=== PATIENT | male | born 1975 | race Caucasian/White ===

== ENCOUNTER 2020-02-22 16:41 | Inpatient (IN) | payer MEDICAID, SELFPAY ==
[~2020-02-22] VITALS: Ht 167.6 cm; Wt 98.4 kg
[~2020-02-22 16:41] MED LIST: BUPIVACAINE /EPINEPHRINE/PF 0.5% 30 ML VIAL INJ ONE; D5/0.45 NS 1,000 ML IV.SOLN IV ONE; MIDAZOLAM HCL 5 MG/5 ML VIAL IVP ONE; NS IRRIG SOLN 1000 ML IR ONE; PIPERACILLIN/TAZOBACTAM 3.375 GM/DEX-IS 50 ML PIGGYBACK IV ONE; PROPOFOL 200MG/ 20ML VIAL (DIPRIVAN) IV ONE; ROCURONIUM BROMIDE 10 MG/ML (ZEMURON) IV ONE; SEVOFLURANE 15 MIN GAS INH ONE; fentaNYL CITRATE 250 MCG/5 ML AMP IV ONE
[2020-02-22 16:57] VITALS: BP_SYST 131
--- NOTE | 2020-02-22 17:01 | NUR ---
chay and placed in the waiting room.
--- NOTE | 2020-02-22 17:50 | NUR ---
Patient to ER bed 04 to gown for evaluation. Side rails up.
--- NOTE | 2020-02-22 17:52 | NUR ---
Patient arrived in the ED c/o bilateral upper quadrant abdominal pain and constipation that started 2 days ago. Denied any chest pain or shortness of breath. Denied any fevers, chills, nausea or vomiting. Patient is alert and oriented x4, respirations even and unlabored, speaking in full sentences, and ambulating with a steady gait. VSS, pain level 7/10. Informed of the approximate wait time. Instructed to notify ED staff for any changes in condition or worsening of symptoms while waiting to be seen by an ED provider. Patient verbalized understanding.
--- NOTE | 2020-02-22 18:28 | NUR ---
ER Dr. Dominguez at bedside examining patient.
[2020-02-22] MEDS ORDERED: MORPHINE 4 MG/ML INJ. SYRINGE IVP ONE (18:30)
[2020-02-22] MEDS ORDERED: DIPHENHYDRAMINE INJ 50 MG/ML VIAL IVP ONE (18:30)
--- NOTE | 2020-02-22 18:40 | NUR ---
# 22 gauge angiocath placed to LAC. Use of asceptic technique. Opsite placed over site. Blood return noted. Blood for lab drawn from site. Flushed with 10 cc of normal saline. No evidence of infiltration noted. Patient tolerated well.
[2020-02-22 19:09] LABS: BASOPHILS # (AUTO) 0.1 K/uL (0.0-0.2); BASOPHILS % (AUTO) 0.6 % (0.0-2.0); EOSINOPHILS # (AUTO) 0.1 K/uL (0.0-0.4); EOSINOPHILS % (AUTO) 0.7 % (0.0-4.0); HEMATOCRIT 40.9 % (36-54); HEMOGLOBIN 13.5 g/dL (14.0-18.0); LYMPHOCYTES # (AUTO) 2.6 K/uL (1.0-5.5); LYMPHOCYTES % (AUTO) 20.5 % (20.5-51.5); MEAN CORPUSCULAR HEMOGLOBIN 28 pg (27-31); MEAN CORPUSCULAR HGB CONC 33 % (32-36); MEAN CORPUSCULAR VOLUME 86 fL (79.0-98.0); MONOCYTES # (AUTO) 0.9 K/uL (0.0-1.0); MONOCYTES % (AUTO) 7.3 % (1.7-9.3); NEUTROPHILS # (AUTO) 8.9 K/uL (1.8-7.7); NEUTROPHILS % (AUTO) 70.9 % (40.0-70.0); PLATELET COUNT (AUTO) 273 K/uL (130-430); RED BLOOD CELL COUNT(AUTO) 4.77 MIL/uL (4.2-6.2); RED CELL DISTRIBUTION WIDTH 13.4 % (9.0-15.0); WHITE BLOOD COUNT (AUTO) 12.5 K/uL (4.8-10.8)
--- NOTE | 2020-02-22 19:11 | NUR ---
Report given to MIGUELINA Nieves.
[2020-02-22 19:19] LABS: BILIRUBIN,URINE NEGATIVE (NEGATIVE); BLOOD, URINE NEGATIVE (NEGATIVE); CLARITY/URINE CLEAR (CLEAR); COLOR,URINE YELLOW (YELLOW); GLUCOSE,URINE NEGATIVE (NEGATIVE); KETONES,URINE TRACE (NEGATIVE); LEUKOCYTE ESTERASE ,URINE NEGATIVE (NEGATIVE); NITRITE, URINE NEGATIVE (NEGATIVE); PH,URINE 6.5 (5.0-8.0); PROTEIN URINE NEGATIVE (NEGATIVE); UROBILINOGEN,URINE 0.2 (0.2-1.0)
[2020-02-22 19:38] LABS: CALCIUM 8.6 mg/dL (8.4-11.0); CREATININE 0.75 mg/dL (0.55-1.30)
[2020-02-22 19:40] LABS: PROTHROMBIN TIME 10.3 SECS (9.5-12.5)
[2020-02-22 19:44] LABS: ALBUMIN 3.6 g/dL (3.4-4.8); TOTAL BILIRUBIN 0.6 mg/dL (0.0-1.0)
--- NOTE | 2020-02-22 20:18 | NUR ---
ER Dr. Price at bedside examining patient.
[2020-02-22] MEDS ORDERED: PIPERACILLIN/TAZO 3.375 GM in NS 50 ML IV ONE (20:30)
[2020-02-22] MEDS ORDERED: metroNIDAZOLE 500 mg/NS 100 ML IV ONE (20:30)
[2020-02-22] MEDS ORDERED: NACL 0.9% 2,000 ML IV ONE (20:30)
--- NOTE | 2020-02-22 20:31 | NUR ---
Jordyn clancy in ED - 02/22/20 at 2218 by [email or web address] BON Doll at bedside examining patient.
[2020-02-22] MEDS ORDERED: PIPERACILLIN/TAZOBACTAM 3.375 GM/VIAL (ZOSYN) IV ONE (21:01)
[2020-02-22] MEDS ORDERED: ONDANSETRON HCL 4 MG/2 ML VIAL IVP PRN (21:15)
[2020-02-22] MEDS ORDERED: MORPHINE 2 MG/ML INJ. SYRINGE IVP PRN (21:15)
[2020-02-22] MEDS ORDERED: D5/0.45 NS 1,000 ML IV ONE (21:15)
--- NOTE | 2020-02-22 21:20 | NUR ---
Swabbed Covid-19 and MRSA and sent to lab.
[2020-02-22] MEDS ORDERED: ATOR40TA68 PO (21:38)
[2020-02-22] MEDS ORDERED: ASPI-1155 PO (21:38)
[2020-02-22 22:04] LABS: PROTHROMBIN TIME 10.2 SECS (9.5-12.5)
--- NOTE | 2020-02-22 22:06 | NUR ---
Patient resting quietly. No acute distress noted. Vital signs within normal range.
--- NOTE | 2020-02-22 22:15 | NUR ---
Patient will be admitted to care of and Dr. Moody. Admitted to M/S unit. Will go to room 108A. Belongings list completed. Complete and up to date summary report printed. SBAR report to be given at bedside with opportunity for questions.
--- NOTE | 2020-02-22 22:27 | NUR ---
ADMIT NOTE Received pt from ER to the floor with a diagnosis of sepsis, acute appendicitis, leukocytosis. Admission process initiated. patient oriented to pain management, safety and call light-teach back done.
[2020-02-22 22:33] VITALS: BP_SYST 117
[2020-02-22] MEDS ORDERED: FLU VACC QS2020-21 (6 mos & up) 0.5 ML/SYRINGE I.M. PRN (23:00)
--- NOTE | 2020-02-23 | NUR ---
OPENING NOTE SBAR REPORT RECEIVED FROM JOJO MCINTYRE. CARE ASSUMED. PT LAYING IN BED ASLEEP. NO SIGNS AND SYMPTOMS OF DISTRESS NOTED. PT HAS RIGHT AC 20G RUNNING D5 1/2 NS @ 50 ML/HR. BED LOCKED IN LOWEST POSITION. CALL LIGHT WITHIN REACH. SAFETY PRECAUTIONS IN PLACE. WILL CONTINUE TO MONITOR.
[2020-02-23] MEDS ORDERED: PIPERACILLIN/TAZOBACTAM 3.375 GM/VIAL (ZOSYN) IV ONE ×2 (00:55→22:01)
[2020-02-23] MEDS ORDERED: metroNIDAZOLE 500 mg/NS 100 ML IV ONE (00:56)
--- NOTE | 2020-02-23 02:05 | NUR ---
PT SLEEPING. IV INFUSING. NO SIGNS AND SYMPTOMS OF DISTRESS NOTED. BED LOCKED IN LOWEST POSITION. CALL LIGHT WITHIN REACH. SAFETY PRECAUTIONS IN PLACE. WILL CONTINUE TO MONITOR.
--- NOTE | 2020-02-23 04:15 | NUR ---
UPDATE ASSISTED PT TO BATHROOM. PT DENIES ANY PAIN OR DISCOMFORT. WILL CONTINUE TO MONITOR.
[2020-02-23] MEDS: metroNIDAZOLE 500 mg/NS 100 ML IV SCH ×3 (05:36→22:25)
[2020-02-23] MEDS: PIPERACILLIN/TAZO 3.375 GM in NS 50 ML IV SCH ×3 (05:37→21:54)
--- NOTE | 2020-02-23 05:41 | NUR ---
CLOSING NOTE PT LAYING IN BED. NO SIGNS AND SYMPTOMS OF DISTRESS NOTED. SBAR REPORT GIVEN TO SERAVNDO. CARE ENDORSED.
--- NOTE | 2020-02-23 05:46 | NUR ---
RECEIVED CARE OF PATIENT AND SBAR REPORT.
--- NOTE | 2020-02-23 05:51 | NUR ---
Consult for Dr. Moody already called by the ER Instrumentation Chemist
[2020-02-23 07:19] VITALS: BP_SYST 112
--- NOTE | 2020-02-23 07:30 | NUR ---
initial notes rec patient awake alert with ivf infusing well. no infiltration noted. resp easy and unlabored. no sob noted. bed to the lowest position and side rails up and locked. call light within reached. npo maintianed for sx today.
[2020-02-23 08:10] LABS: CALCIUM 8.5 mg/dL (8.4-11.0); CREATININE 0.66 mg/dL (0.55-1.30); POTASSIUM 3.7 mmol/L (3.5-5.1)
[2020-02-23 08:15] LABS: ALBUMIN 3.2 g/dL (3.4-4.8); TOTAL BILIRUBIN 0.6 mg/dL (0.0-1.0)
[2020-02-23 08:20] LABS: PROTHROMBIN TIME 10.3 SECS (9.5-12.5)
[2020-02-23] MEDS ORDERED: fentaNYL CITRATE/PF 100 MCG/2 ML AMP IVP PRN ×2 (09:00)
[2020-02-23] MEDS ORDERED: ONDANSETRON HCL 4 MG/2 ML VIAL IVP PRN (09:00)
[2020-02-23] MEDS ORDERED: NALOXONE HCL 0.4 MG/ML AMP (NARCAN) IVP PRN (09:30)
[2020-02-23 09:48] LABS: BASOPHILS % (AUTO) 0.3 % (0.0-2.0); EOSINOPHILS # (AUTO) 0.1 K/uL (0.0-0.4); EOSINOPHILS % (AUTO) 0.5 % (0.0-4.0); HEMATOCRIT 40.7 % (36-54); HEMOGLOBIN 13.9 g/dL (14.0-18.0); LYMPHOCYTES # (AUTO) 1.6 K/uL (1.0-5.5); MEAN CORPUSCULAR HEMOGLOBIN 29 pg (27-31); MEAN CORPUSCULAR HGB CONC 34 % (32-36); MEAN CORPUSCULAR VOLUME 85 fL (79.0-98.0); MONOCYTES # (AUTO) 0.6 K/uL (0.0-1.0); MONOCYTES % (AUTO) 5.4 % (1.7-9.3); NEUTROPHILS # (AUTO) 8.4 K/uL (1.8-7.7); NEUTROPHILS % (AUTO) 78.8 % (40.0-70.0); PLATELET COUNT (AUTO) 263 K/uL (130-430); RED BLOOD CELL COUNT(AUTO) 4.79 MIL/uL (4.2-6.2); RED CELL DISTRIBUTION WIDTH 13.4 % (9.0-15.0); WHITE BLOOD COUNT (AUTO) 10.6 K/uL (4.8-10.8)
[2020-02-23] MEDS ORDERED: fentaNYL CITRATE/PF 100 MCG/2 ML AMP ONE (10:16)
--- NOTE | 2020-02-23 10:25 | NUR ---
rounds pt back from surgery s/p lap appendectomy. asleep but arousable to stimuli. ivf infusing well on the r forearm. no infiltration noted. 3 incision sites intact with derma anne. no bleeding noted. will continue to monitor patient.
--- NOTE | 2020-02-23 10:27 | NUR ---
Nutrition Update Jose Scale 18 noted. Pt admitted for sepsis, acute appendicitis, leukocytosis. Diet: clear liquid BMI: 35 kg/m2 RD to follow per nutrition care standards.
[2020-02-23] MEDS: MORPHINE 4 MG/ML INJ. SYRINGE IVP PRN ×3 (12:00→21:55)
[2020-02-23 12:06] VITALS: BP_SYST 93
--- NOTE | 2020-02-23 12:20 | NUR ---
rounds c/o pain and medicated with morphine 4 mg ivp. call light within reached.
[2020-02-23 16:06] VITALS: BP_SYST 101
[2020-02-23] MEDS: D5/0.45 NS 1,000 ML IV SCH ×2 (16:14→19:30)
--- NOTE | 2020-02-23 16:20 | NUR ---
rounds pain med given as requested and went to sleep after. no sob noted. bed to the lowest position and side rails up and locked. call light within reached.
--- NOTE | 2020-02-23 19:30 | NUR ---
closing notes pt stated he voided moderate amount of yellow urine. denies pain at this time. no sob noted. call light within reached.
--- NOTE | 2020-02-23 19:35 | NUR ---
Pt is fully awake, alert and oriented x4. 3 Lap sites abdominal incisions with Dermabond are open to air and with no drainage or odor noted. IVF of D5 1/2NS is infusing well in RH at 100ml/hr without any signs of infiltration. Pt was instructed to use IS 10x Q1hr WA and pt verbalized understanding. Pt's IS usage is between 1000ml and 1250ml. Pt also encouraged to ambulate as needed and to call for assistance before getting out of bed. Pt also verbalized understanding. Fall and safety precautions are in place.
[2020-02-23 20:00] VITALS: BP_SYST 124
[2020-02-23] MEDS: HYDROcodone/ACETAMIN 5-325 MG TAB (NORCO/ VICODIN) PO PRN (20:00)
--- NOTE | 2020-02-23 21:30 | NUR ---
Pt ambulated in his room with steady gait for about 20 minutes and then got back in bed. IVF is infusing well in right hand.
--- NOTE | 2020-02-23 21:55 | NUR ---
Pt c/o 12/08 abdominal incisional pain. Morphine 4mg was given IV. Abdominal incisions are dry and intact. IVF is infusing well in right hand. Call light is with pt and bed is in the lowest/locked positions. Pt was instructed to call for assistance before getting out of bed if he feels dizzy or drowsy and pt verbalized understanding.
[2020-02-23] MEDS ORDERED: metroNIDAZOLE 500 mg/NS 200 ML IV ONE (22:01)
[2020-02-24] VITALS: BP_SYST 118
--- NOTE | 2020-02-24 | NUR ---
IVF is infusing well in RH. No c/o pain or discomfort. Fall and safety precautions are in place.
--- NOTE | 2020-02-24 02:00 | NUR ---
Pt is sleeping comfortably in bed without any respiratory distress noted. IVF is infusing well in right hand. Fall and safety precautions are in place.
[2020-02-24] MEDS: MORPHINE 4 MG/ML INJ. SYRINGE IVP PRN (02:47)
--- NOTE | 2020-02-24 02:47 | NUR ---
Morphine 4mg given IV for c/o 7/10 abdominal incisional pain. Fall and safety precautions are in place. IVF is infusing well in .
--- NOTE | 2020-02-24 04:30 | NUR ---
Pt is sleeping without any respiratory distress noted. IVF is infusing well in RH. Fall and safety precautions are in place.
[2020-02-24] MEDS: PIPERACILLIN/TAZO 3.375 GM in NS 50 ML IV SCH (05:23)
[2020-02-24] MEDS: D5/0.45 NS 1,000 ML IV SCH (05:30)
[2020-02-24] MEDS: metroNIDAZOLE 500 mg/NS 100 ML IV SCH (06:25)
--- NOTE | 2020-02-24 06:30 | NUR ---
Pt is awake and resting quietly in bed. IVF is infusing well in RH. Fall and safety precautions are in place. Will endorse to day shift nurse.
[2020-02-24 06:37] LABS: BASOPHILS % (AUTO) 0.3 % (0.0-2.0); EOSINOPHILS % (AUTO) 0.2 % (0.0-4.0); HEMATOCRIT 36.7 % (36-54); HEMOGLOBIN 12.3 g/dL (14.0-18.0); MEAN CORPUSCULAR HEMOGLOBIN 28 pg (27-31); MEAN CORPUSCULAR HGB CONC 34 % (32-36); MEAN CORPUSCULAR VOLUME 85 fL (79.0-98.0); MONOCYTES % (AUTO) 8.8 % (1.7-9.3); NEUTROPHILS # (AUTO) 8.1 K/uL (1.8-7.7); NEUTROPHILS % (AUTO) 72.7 % (40.0-70.0); PLATELET COUNT (AUTO) 268 K/uL (130-430); RED BLOOD CELL COUNT(AUTO) 4.33 MIL/uL (4.2-6.2); RED CELL DISTRIBUTION WIDTH 13.1 % (9.0-15.0); WHITE BLOOD COUNT (AUTO) 11.1 K/uL (4.8-10.8)
[2020-02-24 06:44] LABS: CALCIUM 8.1 mg/dL (8.4-11.0); CREATININE 0.83 mg/dL (0.55-1.30); POTASSIUM 3.6 mmol/L (3.5-5.1)
--- NOTE | 2020-02-24 07:10 | NUR ---
OPENING NOTE RECEIVED SBAR FROM NIGHT RN, PATIENT IN BED, RESPIRATIONS EVEN, NON LABORED, BED IN LOW AND LOCKED POSITION, CALL LIGHT WITHIN REACH, BED ALARM ON
[2020-02-24 08:00] VITALS: BP_SYST 110
--- NOTE | 2020-02-24 08:00 | NUR ---
NURSE NOTE OBTAINED VS, PATIENT IN BED, RESPIRATIONS EVEN, NON LABORED, PATIENT USING INCENTIVE SPIROMETER CORRECTLY, BED IN LOW AND LOCKED POSITION, CALL LIGHT WITHIN REACH, BED ALARM ON
--- NOTE | 2020-02-24 08:45 | NUR ---
NURSE NOTE PATIENT COMPLAINING OF PAIN, REQUESTING MEDICATION, REPOSITIONED PATIENT, ADMINISTERED MEDS. RESPIRATIONS EVEN, NON LABORED, BED IN LOW AND LOCKED POSITION, CALL LIGHT WITHIN REACH
[2020-02-24] MEDS: HYDROcodone/ACETAMIN 5-325 MG TAB (NORCO/ VICODIN) PO PRN ×2 (08:50→12:57)
--- NOTE | 2020-02-24 11:34 | NUR ---
NURSE NOTE PATIENT AMBULATING IN ROOM, RESPIRATIONS EVEN, NON LABORED, COMPLAINS OF MINIMAL PAIN, WILL CONTINUE TO MONITOR
--- NOTE | 2020-02-24 11:50 | NUR ---
NURSE NOTE PATIENT STATED NO PROBLEMS WITH CLEAR DIET, WISHES TO HAVE REGULAR DIET,
--- NOTE | 2020-02-24 12:37 | NUR ---
Dietitian Recommendations *Continue regular diet. Please see Nutritional Assessment for details. RACHEL, RD
[2020-02-24 12:46] VITALS: BP_SYST 117
[2020-02-24] MEDS ORDERED: PIPERACILLIN/TAZO 3.375 GM in NS 50 ML IV SCH (14:00)
[2020-02-24] MEDS ORDERED: metroNIDAZOLE 500 mg/NS 100 ML IV SCH (14:00)
--- NOTE | 2020-02-24 14:32 | NUR ---
OK for DC home per Surgeon: has called and asked for patient condition. Give the surgeon an update about patient's condition. He states that patient can be DC home and follow up in his office in [address] Phelps for DC order.
--- NOTE | 2020-02-24 14:45 | NUR ---
DC ORDER SPOKE WITH DR MUNGUIA, INFORMED HIM OF PATIENTS STATUS, AND OK TO DISCHARGE PER DR KYLE, ORDERS GIVEN FOR DISCHARGE, PATIENT TO SEE DR MUNGUIA ON Monday02-28-20 AT 1500 AND FOLLOW UP WITH DR KYLE IN ONE WEEK, PATIENTS PHONE NUMBER GIVEN TO DR MUNGUIA FOR TELECONFERENCE APPOINTMENT TOMORROW
[2020-02-24 15:56] VITALS: BP_SYST 118
[2020-02-24 16:02] VITALS: BP_SYST 118
--- NOTE | 2020-02-24 16:45 | NUR ---
D/C Patient Patient given medication reconciliation form and D/C instructions. Exit Care provided. Patient verbalized understanding. Ambulatory with steady gait for discharge to home. Patient in stable condition, ID band removed. IV catheter removed, intact and dressing applied, no active bleeding. Patient educated on pain management. All belongings sent with patient. Patient taken to parking lot, via wheel chair, to 's awaiting car.
== END 2020-02-24 16:45 | disposition home or self-care (01) | DRG 234 ==
LOC: SED 16:41 → SMU 21:10
PROVIDERS: ADMIT Internal Medicine; ATTEND Internal Medicine
PROC: 0DTJ4ZZ Resection of Appendix, Percutaneous Endoscopic Approach (ICD-10-PCS; principal; 2020-02-23 08:00)
DX: K35.80 Unspecified acute appendicitis (principal); E78.00 Pure hypercholesterolemia, unspecified; G47.30 Sleep apnea, unspecified; E78.5 Hyperlipidemia, unspecified; Z20.828 Contact with and (suspected) exposure to other viral communicable diseases; Z79.82 Long term (current) use of aspirin; Z68.35 Body mass index [BMI] 35.0-35.9, adult; E66.8 Other obesity
CPT/HCPCS: 36415; 71045; 74018; 80048; 80053; 81003; 83605; 83690-TC; 85025; 85610-TC; 85730-TC; 86886; 86900; 86901; 87040-TC; 87081; 88304; 93005; 99285; J1200; J2250; J2270; J2543; J2704; J3010; J3490

== ENCOUNTER 2022-08-15 22:06 | Emergency (ER) | payer MEDICAID ==
[~2022-08-15 22:06] MED LIST changes: +ASPI-1155 PO; +ATOR40TA68 PO; -BUPIVACAINE /EPINEPHRINE/PF 0.5% 30 ML VIAL INJ ONE; -D5/0.45 NS 1,000 ML IV.SOLN IV ONE; -MIDAZOLAM HCL 5 MG/5 ML VIAL IVP ONE; -NS IRRIG SOLN 1000 ML IR ONE; -PIPERACILLIN/TAZOBACTAM 3.375 GM/DEX-IS 50 ML PIGGYBACK IV ONE; -PROPOFOL 200MG/ 20ML VIAL (DIPRIVAN) IV ONE; -ROCURONIUM BROMIDE 10 MG/ML (ZEMURON) IV ONE; -SEVOFLURANE 15 MIN GAS INH ONE; -fentaNYL CITRATE 250 MCG/5 ML AMP IV ONE
[2022-08-15 22:37] VITALS: BP_SYST 123
--- NOTE | 2022-08-15 22:44 | NUR ---
Patient triaged and placed in waiting room. VSS and patient appears in no acute distress at this time. Accompanied by self, awaiting available bed, and MD notified of need for MSE.
[2022-08-16 00:15] LABS: BASOPHILS % (AUTO) 0.2 % (0.0-2.0); EOSINOPHILS % (AUTO) 0.5 % (0.0-4.0); HEMATOCRIT 40.7 % (36-54); HEMOGLOBIN 13.9 g/dL (14.0-18.0); LYMPHOCYTES # (AUTO) 0.9 K/uL (1.0-5.5); LYMPHOCYTES % (AUTO) 12.3 % (20.5-51.5); MEAN CORPUSCULAR HEMOGLOBIN 29 pg (27-31); MEAN CORPUSCULAR HGB CONC 34 % (32-36); MEAN CORPUSCULAR VOLUME 85 fL (79.0-98.0); MONOCYTES # (AUTO) 0.5 K/uL (0.0-1.0); NEUTROPHILS # (AUTO) 5.8 K/uL (1.8-7.7); PLATELET COUNT (AUTO) 239 K/uL (130-430); RED BLOOD CELL COUNT(AUTO) 4.79 MIL/uL (4.2-6.2); RED CELL DISTRIBUTION WIDTH 13.8 % (9.0-15.0); WHITE BLOOD COUNT (AUTO) 7.3 K/uL (4.8-10.8)
[2022-08-16 00:28] LABS: CLARITY/URINE HAZY (CLEAR); COLOR,URINE YELLOW (YELLOW); GLUCOSE,URINE NEGATIVE (NEGATIVE); PROTEIN URINE 1+ (NEGATIVE)
[2022-08-16 00:29] LABS: BILIRUBIN,URINE 1+ (NEGATIVE); BLOOD, URINE TRACE (NEGATIVE); KETONES,URINE NEGATIVE (NEGATIVE); LEUKOCYTE ESTERASE ,URINE NEGATIVE (NEGATIVE); NITRITE, URINE NEGATIVE (NEGATIVE); UROBILINOGEN,URINE 0.2 (0.2-1.0)
[2022-08-16 00:31] LABS: ANION GAP 9 (5-15); CALCIUM 8.1 mg/dL (8.4-11.0); CHLORIDE 100 mmol/L (98-107); CREATININE 0.93 mg/dL (0.55-1.30); GFR AFRICAN AMERICAN 112 mL/min (>90); GLUCOSE 108 mg/dL (70-99); UREA NITROGEN, BLOOD 11 mg/dL (8-21)
[2022-08-16 00:33] LABS: BACTERIA,URINE None Seen /HPF (None Seen); MUCUS,URINE 2+ /LPF (None Seen); RBC,URINE 0-3 /HPF (0-3); WBC,URINE 0-3 /HPF (0-3)
[2022-08-16 00:39] LABS: ALANINE AMINOTRANSFERASE 35 U/L (12-78); ALBUMIN 3.4 g/dL (3.4-4.8); ASPARTATE AMINOTRANSFERASE 21 U/L (10-37); LIPASE 110 U/L (73-393); TOTAL BILIRUBIN 0.7 mg/dL (0.0-1.0)
--- NOTE | 2022-08-16 00:44 | NUR ---
Patient to ER bed 3 to gown for evaluation. Side rails up. Report given to Thomas MCINTYRE by Lesly MCINTYRE.
--- NOTE | 2022-08-16 01:45 | NUR ---
MD AT BEDSIDE FOR EVAL AND ORDERS
[2022-08-16] MEDS: ONDANSETRON 4 MG ODT TAB PO ONE (01:52)
[2022-08-16] MEDS ORDERED: DICY10CA13 PO (02:23)
[2022-08-16] MEDS ORDERED: FAMO20TA8 PO (02:23)
[2022-08-16] MEDS: KETOROLAC TROMETHAMINE 15 MG VIAL IM ONE (02:31)
[2022-08-16] MEDS: DICYCLOMINE HCL 10 MG/5 ML SOLUTION PO ONE (02:33)
[2022-08-16] MEDS: MAG-AL HYDROX/SIMETH 30 ML UDC PO ONE (02:34)
[2022-08-16 02:42] VITALS: BP_SYST 132
--- NOTE | 2022-08-16 02:46 | NUR ---
Patient given written and verbal discharge instructions and verbalizes understanding. ER MD COLON discussed with patient the results and treatment provided. Patient in stable condition. ID arm band removed. Rx of PEPCID AND DICYCLOMINE given. Patient educated on pain management and to follow up with PMD. Pain Scale 2. Opportunity for questions provided and answered. Medication side effect fact sheet provided.
== END 2022-08-16 02:52 | disposition home or self-care (01) ==
LOC: SED 22:06
DX: R10.32 Left lower quadrant pain (principal); R11.0 Nausea; E78.5 Hyperlipidemia, unspecified; Z79.899 Other long term (current) drug therapy
CPT/HCPCS: 99285; 71045; 80053; 81000; 83690; 85025; 84484; 36415; 93005; 74176; 76376; 96372; Q0162; J1885